=== PATIENT | male | born 1980 | race Caucasian/White ===

== ENCOUNTER 2016-08-23 10:46 | Emergency (ER) | payer SELFPAY ==
[~2016-08-23] VITALS: Ht 177.8 cm; Wt 77.1 kg
[2016-08-23 10:58] VITALS: BP 132/77
[2016-08-23] MEDS ORDERED: IPRATRPIUM/ALBUTEROL 0.5/2.5MG 3 ML NEBU. NEB ONE (11:15)
[2016-08-23] MEDS ORDERED: BENZONATATE 100 MG CAPSULE. PO ONE (11:15)
[2016-08-23] MEDS ORDERED: predniSONE 20 MG TABLET PO ONE (11:15)
--- NOTE | 2016-08-23 11:23 | RAD ---
Exam performed: 2 views of the chest. Indication: cough Date of Service:08/23/2016 1:06 PM . Comparison : None available Findings: PA and lateral radiographs of the chest reveal a normal cardiomediastinal contour. The lungs are clear. No pleural fluid is seen. The visualized osseous structures are unremarkable. Impression: Radiographically normal chest.
[2016-08-23] MEDS ORDERED: PRED50TA PO (12:21)
[2016-08-23] MEDS ORDERED: PROAIR RESPICL90 MCG IH (12:21)
[2016-08-23] MEDS ORDERED: BENZ100C PO (12:21)
--- NOTE | 2016-08-23 12:22 | PHYS DOC ---
Past Medical History Past Medical History: Diverticulosis, Kidney Stone Past Surgical History: Appendectomy, Cholecystectomy Additional Information: 1 ppd Alcohol Use: Rarely Drug Use: None Adult General Chief Complaint Chief Complaint: COUGH HPI HPI Patient is a 36 year old male with history of smoking who presents today with a productive cough and nasal congestion for 1 week. Patient denies any fever. Review of Systems Review of Systems Constitutional: See history of present illness Eyes: Denies change in visual acuity, redness, or eye pain [] HENT: nasal congestion Respiratory: Productive cough Cardiovascular: No additional information not addressed in HPI [] GI: Denies abdominal pain, nausea, vomiting, bloody stools or diarrhea [] : Denies dysuria or hematuria [] Musculoskeletal: Denies back pain or joint pain [] Integument: Denies rash or skin lesions [] Neurologic: Denies headache, focal weakness or sensory changes [] Endocrine: Denies polyuria or polydipsia [] Current Medications Current Medications Current Medications Medications (Trade) Dose Ordered Sig/Filipe Start Time Stop Time Status Last Admin Dose Admin Albuterol/ Ipratropium (Duoneb) 3 ml 1X ONCE 08/23/16 11:15 08/23/16 11:18 DC 08/23/16 11:56 3 ML Benzonatate (Tessalon Perle) 200 mg 1X ONCE 08/23/16 11:15 08/23/16 11:18 DC 08/23/16 11:38 200 MG Prednisone (Prednisone) 60 mg 1X ONCE 08/23/16 11:15 08/23/16 11:18 DC 08/23/16 11:38 60 MG Allergies Allergies Allergies Coded Allergies Type Severity Reaction Last Updated Verified ciprofloxacin Allergy Intermediate hives 08/23/16 Yes morphine Allergy Intermediate hives 08/23/16 Yes Physical Exam Physical Exam Constitutional: Well developed, well nourished, no acute distress, non-toxic appearance. [] HENT: Normocephalic, atraumatic, bilateral external ears normal, oropharynx moist, no oral exudates, nose normal. [] Eyes: PERRLA, EOMI, conjunctiva normal, no discharge. [] Neck: Normal range of motion, no tenderness, supple, no stridor. [] Cardiovascular:Heart rate regular rhythm, no murmur [] Lungs & Thorax: Bilateral breath sounds clear to auscultation [] Abdomen: Bowel sounds normal, soft, no tenderness, no masses, no pulsatile masses. [] Skin: Warm, dry, no erythema, no rash. [] Back: No tenderness, no CVA tenderness. [] Extremities: No tenderness, no cyanosis, no clubbing, ROM intact, no edema. [] Neurologic: Alert and oriented X 3, normal motor function, normal sensory function, no focal deficits noted. [] Psychologic: Affect normal, judgement normal, mood normal. [] Current Patient Data Vital Signs Vital Signs Date Time Temp Pulse Resp B/P (MAP) Pulse Ox O2 Delivery O2 Flow Rate FiO2 08/23/16 11:55 99 Room Air 08/23/16 10:58 98.3 103 14 98.3 EKG EKG [] Radiology/Procedures Radiology/Procedures [] Course & Med Decision Making Course & Med Decision Making Pertinent Labs and Imaging studies reviewed. (See chart for details) Patient with history of smoking who presents today with a productive cough for 1 week and nasal congestion. Chest x-ray interpreted by the radiologist as negative for any acute findings. Symptoms are viral. Discharged with albuterol inhaler prednisone and Tessalon Perles. Follow-up with PCP in one week. We talked about smoking cessation. Dragon Disclaimer Dragon Disclaimer This electronic medical record was generated, in whole or in part, using a voice recognition dictation system. Departure Departure Impression: Primary Impression: Acute bronchitis Additional Impressions: Smoking addiction Acute URI Disposition: HOME, SELF-CARE Condition: STABLE Referrals: UNKNOWN PCP NAME (PCP) Follow-up with your own doctor in one week Patient Instructions: Acute Bronchitis, Smoking Cessation, Smoking Hazards, Upper Respiratory Infection, Adult Additional Instructions: You were seen for acute bronchitis. This is a viral illness. Try and stop smoking. Take the prescribed medicines as ordered. Scripts Albuterol Sulfate (Proair Respiclick) 90 Mcg Aer.pow.ba 1 PUFF IH PRN Q6HRS Y for SHORTNESS OF BREATH, #1 INHALER Prov: MUTUNGA,AARON HACKSAW INSPECTOR 08/23/16 Benzonatate (TESSALON PERLE) 100 Mg Capsule 1 CAP PO TID, #30 CAP Prov: MUTUNGA,AARON HACKSAW INSPECTOR 08/23/16 Prednisone (PREDNISONE) 50 Mg Tablet 1 TAB PO DAILY, #5 TAB Prov: MUTUNGA,AARON HACKSAW INSPECTOR 08/23/16 Problem Qualifiers Primary Impression: Acute bronchitis Bronchitis organism: unspecified organism Qualified Codes: J20.9 - Acute bronchitis, unspecified AARON HARRIS HACKSAW INSPECTOR August 23, 2016 12:21
== END 2016-08-23 12:31 | disposition home or self-care (01) ==
LOC: ER 10:46
DX: J20.9 Acute bronchitis, unspecified (principal); F17.200 Nicotine dependence, unspecified, uncomplicated; J06.9 Acute upper respiratory infection, unspecified; Z88.1 Allergy status to other antibiotic agents; Z88.5 Allergy status to narcotic agent
CPT/HCPCS: 71020; 94250; 94640; 99284; J7512; J7620

== ENCOUNTER 2016-10-04 07:15 | Emergency (ER) | payer SELFPAY ==
[~2016-10-04] VITALS: Ht 177.8 cm; Wt 81.6 kg
[~2016-10-04 07:15] MED LIST: BENZ100C PO; PRED50TA PO; PROAIR RESPICL90 MCG IH
--- NOTE | 2016-10-04 07:49 | PHYS DOC ---
Past Medical History Past Medical History: Diverticulosis, Kidney Stone Past Surgical History: Appendectomy, Cholecystectomy Alcohol Use: Rarely Drug Use: None Adult General Chief Complaint Chief Complaint: FLANK PAIN HPI HPI Patient is a 36 year old male with history of kidney stones presents with moderate left flank pain with nausea that began this morning. Patient denies any vomiting. Patient denies any urgency frequency dysuria or hematuria. Review of Systems Review of Systems Constitutional: Denies fever or chills [] Eyes: Denies change in visual acuity, redness, or eye pain [] HENT: Denies nasal congestion or sore throat [] Respiratory: Denies cough or shortness of breath [] Cardiovascular: No additional information not addressed in HPI [] GI: Denies abdominal pain, nausea, vomiting, bloody stools or diarrhea [] : Left flank pain Musculoskeletal: Denies back pain or joint pain [] Integument: Denies rash or skin lesions [] Neurologic: Denies headache, focal weakness or sensory changes [] Endocrine: Denies polyuria or polydipsia [] Current Medications Current Medications Current Medications Medications (Trade) Dose Ordered Sig/Filipe Start Time Stop Time Status Last Admin Dose Admin Hydromorphone HCl (Dilaudid) 1 mg 1X ONCE 10/04/16 08:00 10/04/16 08:01 DC 10/04/16 07:49 1 MG Ondansetron HCl (Zofran) 4 mg 1X ONCE 10/04/16 08:00 10/04/16 08:01 DC 10/04/16 07:49 4 MG Sodium Chloride 1,000 ml @ 1,000 mls/hr 1X ONCE 10/04/16 08:00 10/04/16 08:59 DC 10/04/16 07:49 1,000 MLS/HR Allergies Allergies Allergies Coded Allergies Type Severity Reaction Last Updated Verified ciprofloxacin Allergy Intermediate hives 08/23/16 Yes morphine Allergy Intermediate hives 08/23/16 Yes Physical Exam Physical Exam Constitutional: Well developed, well nourished, no acute distress, non-toxic appearance. [] HENT: Normocephalic, atraumatic, bilateral external ears normal, oropharynx moist, no oral exudates, nose normal. [] Eyes: PERRLA, EOMI, conjunctiva normal, no discharge. [] Neck: Normal range of motion, no tenderness, supple, no stridor. [] Cardiovascular:Heart rate regular rhythm, no murmur [] Lungs & Thorax: Bilateral breath sounds clear to auscultation [] Abdomen: Bowel sounds normal, soft, no tenderness, no masses, no pulsatile masses. [] Skin: Warm, dry, no erythema, no rash. [] Back: No tenderness, no CVA tenderness. [] Extremities: No tenderness, no cyanosis, no clubbing, ROM intact, no edema. [] Neurologic: Alert and oriented X 3, normal motor function, normal sensory function, no focal deficits noted. [] Psychologic: Affect normal, judgement normal, mood normal. [] Current Patient Data Vital Signs Vital Signs Date Time Temp Pulse Resp B/P (MAP) Pulse Ox O2 Delivery O2 Flow Rate FiO2 10/04/16 07:22 98.0 102 18 142/75 (97) 99 Room Air 98.0 Lab Values Laboratory Tests Test 10/04/16 07:23 10/04/16 07:28 Urine Collection Type Void Urine Color [place] Urine Clarity Turbid Urine pH 5.5 Urine Specific [place] >=1.030 Urine Protein 30 mg/dL (NEG-TRACE) Urine Glucose (UA) Negative mg/dL (NEG) Urine Ketones (Stick) Trace mg/dL (NEG) Urine Blood Large (NEG) Urine Nitrite Positive (NEG) Urine Bilirubin Small (NEG) Urine Urobilinogen Dipstick 1.0 mg/dL (0.2 mg/dL) Urine Leukocyte Esterase Small (NEG) Urine RBC 3-5 /HPF (0-2) Urine WBC 1-4 /HPF (0-4) Urine Squamous Epithelial Cells Few /LPF Urine Amorphous Sediment Present /HPF Urine Bacteria Moderate /HPF (0-FEW) Urine Opiates Screen Pos (NEG) Urine Methadone Screen Neg (NEG) Urine Barbiturates Neg (NEG) Urine Phencyclidine Screen Neg (NEG) Urine Amphetamine/Methamphetamine Neg (NEG) Urine Benzodiazepines Screen Neg (NEG) Urine Cocaine Screen Neg (NEG) Urine Cannabinoids Screen Pos (NEG) Urine Ethyl Alcohol Neg (NEG) White Blood Count 13.8 x10^3/uL (4.0-11.0) H Red Blood Count 5.72 x10^6/uL (4.30-5.70) H Hemoglobin 16.4 g/dL (13.0-17.5) Hematocrit 49.6 % (39.0-53.0) Mean Corpuscular Volume 87 fL (79-100) Mean Corpuscular Hemoglobin 29 pg (25-35) Mean Corpuscular Hemoglobin Concent 33 g/dL (31-37) Red Cell Distribution Width 13.5 % (11.5-14.5) Platelet Count 361 x10^3/uL (140-400) Neutrophils (%) (Auto) 62 % (31-73) Lymphocytes (%) (Auto) 28 % (24-48) Monocytes (%) (Auto) 8 % (0-9) Eosinophils (%) (Auto) 1 % (0-3) Basophils (%) (Auto) 0 % (0-3) Neutrophils # (Auto) 8.6 x10^3uL (1.8-7.7) H Lymphocytes # (Auto) 3.9 x10^3/uL (1.0-4.8) Monocytes # (Auto) 1.1 x10^3/uL (0.0-1.1) Eosinophils # (Auto) 0.2 x10^3/uL (0.0-0.7) Basophils # (Auto) 0.1 x10^3/uL (0.0-0.2) Sodium Level 143 mmol/L (136-145) Potassium Level 3.4 mmol/L (3.5-5.1) L Chloride Level 104 mmol/L (98-107) Carbon Dioxide Level 30 mmol/L (21-32) Anion Gap 9 (6-14) Blood Urea Nitrogen 11 mg/dL (8-26) Creatinine 1.0 mg/dL (0.7-1.3) Estimated GFR (Cockcroft-Gault) 84.1 BUN/Creatinine Ratio 11 (6-20) Glucose Level 176 mg/dL (70-99) H Calcium Level 8.9 mg/dL (8.5-10.1) Total Bilirubin 0.6 mg/dL (0.2-1.0) Aspartate Amino Transferase (AST) 15 U/L (15-37) Alanine Aminotransferase (ALT) 24 U/L (16-63) Alkaline Phosphatase 85 U/L (46-116) Total Protein 7.7 g/dL (6.4-8.2) Albumin 4.1 g/dL (3.4-5.0) Albumin/Globulin Ratio 1.1 (1.0-1.7) Ethyl Alcohol Level < 10 mg/dL (0-10) Laboratory Tests 10/04/16 07:28 Laboratory Tests 10/04/16 07:28 EKG EKG [] Radiology/Procedures Radiology/Procedures []PROCEDURE: CT ABDOMEN PELVIS WO CONTRAST Indication left flank pain. Axial images to the abdomen and pelvis were obtained. The examination was tailored for the detection of renal and/or ureteral calculi. No IV or gastrointestinal contrast was administered. The lung bases are clear. No abnormality is seen involving the liver or spleen. Clips are noted in the gallbladder fossa. The pancreas appears unremarkable. There is a 1.3 cm mass off the superior aspect of the right kidney. It is incompletely evaluated on this examination but may represent a small solid mass. Nonemergent ultrasound or multiphase CT with contrast, targeted to the kidneys, is advised. The adrenal glands appear normal. There is a minute left renal calculus. There is no hydronephrosis hydroureter or calcification seen along the course of either ureter. No acute finding is apparent in the abdomen. In the pelvis clips are noted in the appendiceal bed. No acute finding is seen. There are a few small lymph nodes in the abdominal mesentery. These are likely incidental IMPRESSION: No acute finding seen in the abdomen or pelvis. 1.3 cm mass associated with the right kidney. It is not completely characterized on this exam. Additional nonemergent evaluation suggested as outlined above. Minute left renal calculus. PQRS Compliance Statement: One or more of the following individualized dose reduction techniques were utilized for this examination: 1. Automated exposure control 2. Adjustment of the mA and/or kV according to patient size 3. Use of iterative reconstruction technique DICTATED and SIGNED BY: PATRICIA LANDA MD DATE: 10/04/16 0833 CC: AARON HARRIS APRN; UNKNOWN PCP NAME ~ Course & Med Decision Making Course & Med Decision Making Pertinent Labs and Imaging studies reviewed. (See chart for details) This is a 36-year-old male patient who presents with left flank pain that began this morning. Patient has history of kidney stones. Urine with large amount of blood small amount of leukocytes and nitrates. CBC with a WBC of 13.8. CMP would not acute findings. CT of the abdomen and pelvic was noted for a minute left renal calculus. Patient also has a mass on his right kidney. Patient was in no distress. I offered him admission. We do not have urologist. Informed patient if he is to be admitted we have to transfer him to a different hospital. Patient stated he prefers to go home with antibiotics and pain medicine and he can follow-up with his own urologist in [place]. Patient was discharged with Flomax, Bactrim, Zofran, hydrocodone and naproxen. Patient was instructed to follow-up with his own urologist or the provided urologist as soon as he can. Patient's pain is well-controlled in the ED. He was given Dilaudid per his request and Zofran and was provided return precautions and discharged in stable condition. Dragon Disclaimer Dragon Disclaimer This electronic medical record was generated, in whole or in part, using a voice recognition dictation system. Departure Departure Impression: Primary Impression: Pyelonephritis Additional Impressions: Calculus of left kidney Right kidney mass Disposition: HOME, SELF-CARE Condition: STABLE Referrals: UNKNOWN PCP NAME (PCP) ORALIA MORENO DO follow up with a urologist as soon as you can Patient Instructions: Kidney Stones, [id number], Pyelonephritis, Adult Additional Instructions: You were seen for left flank pain. You have a small left kidney stone and a mass to the right kidney. Please ensure you follow-up with the urologist. We provided one for you. You also have a kidney infection. Ensure you complete your antibiotics. Come back to the emergency room at any point symptoms worsen. Scripts Sulfamethoxazole/Trimethoprim (BACTRIM DS TABLET) 1 Each Tablet 1 TAB PO BID, #14 TAB Prov: AARON HARRIS APRN 10/04/16 Ondansetron (ZOFRAN ODT) 4 Mg Tab.rapdis 1 TAB SL Q8HRS, #15 TAB Prov: AARON HARRIS APRN 10/04/16 Hydrocodone/Apap 5-325 (NORCO 5-325 TABLET) 1 Each Tablet 1-2 TAB PO Q4-6HRS, #20 TAB Prov: AARON HARRIS APRN 10/04/16 Tamsulosin Hcl (FLOMAX) 0.4 Mg Cap.er.24h 1 CAP PO DAILY, #7 CAP 11 Refills Prov: AARON HARRIS APRN 10/04/16 Problem Qualifiers AARON HARRIS APRN Oct 04, 2016 07:49
[2016-10-04 07:53] LABS: BASO # 0.1 x10^3/uL (0.0-0.2); BASO % 0 % (0-3); EOS % 1 % (0-3); HEMATOCRIT 49.6 % (39.0-53.0); HEMOGLOBIN 16.4 g/dL (13.0-17.5); LYMPH # 3.9 x10^3/uL (1.0-4.8); LYMPH % 28 % (24-48); MEAN CORPUSCULAR HEMOGLOBIN 29 pg (25-35); MEAN CORPUSCULAR HGB CONC 33 g/dL (31-37); MEAN CORPUSCULAR VOLUME 87 fL (79-100); MONO % 8 % (0-9); NEUT % 62 % (31-73); PLATELET COUNT 361 x10^3/uL (140-400); RED BLOOD COUNT 5.72 x10^6/uL (4.30-5.70); RED CELL DISTRIBUTION WIDTH 13.5 % (11.5-14.5); WHITE BLOOD COUNT 13.8 x10^3/uL (4.0-11.0)
[2016-10-04 07:57] LABS: BILIRUBIN,URINE SMALL (NEG); GLUCOSE,URINE NEGATIVE (NEG); NITRITE,URINE POSITIVE (NEG); PH,URINE 5.5; PROTEIN,URINE 30 mg/dL (NEG-TRACE)
[2016-10-04 07:59] LABS: CALCIUM 8.9 mg/dL (8.5-10.1); GFR 84.1; POTASSIUM 3.4 mmol/L (3.5-5.1)
[2016-10-04] MEDS ORDERED: HYDROmorphone 2 MG/ML VIAL IV ONE (08:00)
[2016-10-04] MEDS ORDERED: IV NORMAL SALINE 1000ML BAG 1,000 ML IV ONE (08:00)
[2016-10-04] MEDS ORDERED: ONDANSETRON PF 4 MG/2 ML VIAL. IV ONE (08:00)
[2016-10-04 08:04] LABS: BARBITURATES NEG (NEG); BENZODIAZEPINES NEG (NEG); CANNABINOIDS POS (NEG); COCAINE NEG (NEG); METHADONE NEG (NEG); OPIATES POS (NEG); PHENCYCLIDINE NEG (NEG)
[2016-10-04 08:05] LABS: ALBUMIN 4.1 g/dL (3.4-5.0); ALBUMIN/GLOBULIN RATIO 1.1 (1.0-1.7); TOTAL BILIRUBIN 0.6 mg/dL (0.2-1.0); TOTAL PROTEIN 7.7 g/dL (6.4-8.2)
[2016-10-04 08:05] LABS: BACTERIA,URINE MODERATE /HPF (0-FEW); SQUAMOUS EPITHELIAL CELL,UR FEW /LPF
--- NOTE | 2016-10-04 08:44 | RAD ---
Indication left flank pain. Axial images to the abdomen and pelvis were obtained. The examination was tailored for the detection of renal and/or ureteral calculi. No IV or gastrointestinal contrast was administered. The lung bases are clear. No abnormality is seen involving the liver or spleen. Clips are noted in the gallbladder fossa. The pancreas appears unremarkable. There is a 1.3 cm mass off the superior aspect of the right kidney. It is incompletely evaluated on this examination but may represent a small solid mass. Nonemergent ultrasound or multiphase CT with contrast, targeted to the kidneys, is advised. The adrenal glands appear normal. There is a minute left renal calculus. There is no hydronephrosis hydroureter or calcification seen along the course of either ureter. No acute finding is apparent in the abdomen. In the pelvis clips are noted in the appendiceal bed. No acute finding is seen. There are a few small lymph nodes in the abdominal mesentery. These are likely incidental IMPRESSION: No acute finding seen in the abdomen or pelvis. 1.3 cm mass associated with the right kidney. It is not completely characterized on this exam. Additional nonemergent evaluation suggested as outlined above. Minute left renal calculus. PQRS Compliance Statement: One or more of the following individualized dose reduction techniques were utilized for this examination: 1. Automated exposure control 2. Adjustment of the mA and/or kV according to patient size 3. Use of iterative reconstruction technique
[2016-10-04] MEDS ORDERED: HYDR-971 PO (09:35)
[2016-10-04] MEDS ORDERED: ONDA4TAB10 SL (09:35)
[2016-10-04] MEDS ORDERED: SULF1TAB24 PO (09:35)
[2016-10-04] MEDS ORDERED: TAMS0.4C97 PO (09:35)
[2016-10-04 09:50] VITALS: BP 130/73
== END 2016-10-04 09:52 | disposition home or self-care (01) ==
LOC: ER 07:15
DX: N12 Tubulo-interstitial nephritis, not specified as acute or chronic (principal); N20.0 Calculus of kidney; N28.89 Other specified disorders of kidney and ureter; Z90.49 Acquired absence of other specified parts of digestive tract; Z88.1 Allergy status to other antibiotic agents; Z88.5 Allergy status to narcotic agent
CPT/HCPCS: 36415; 74176; 80053; 80305; 80320; 81001; 85027; 87086; 96361; 96374; 96375; 99285; J1170; J2405; J7030; G0480; G0481